=== PATIENT | female | born 1955 | race Caucasian/White ===

== ENCOUNTER 2016-12-26 08:01 | Outpatient (CLI) | payer OTHER ==
[~2016-12-26] VITALS: Ht 162.6 cm; Wt 86.2 kg
[~2016-12-26 08:01] MED LIST: ALBU8.5H2 IH; FERR-57 PO; FERR324T11 PO; TRIA1TAB2 PO
[2016-12-26] MEDS ORDERED: CHOL378P3 PO (08:56)
== END 2016-12-26 09:01 ==
LOC: PREOP 08:01
PROVIDERS: ATTEND Surgery
DX: Z01.818 Encounter for other preprocedural examination (principal); Z11.2 Encounter for screening for other bacterial diseases; L98.9 Disorder of the skin and subcutaneous tissue, unspecified

== ENCOUNTER 2016-12-31 06:45 | Day surgery (SDC) | payer OTHER ==
[~2016-12-31] VITALS: Ht 162.6 cm; Wt 86.2 kg
[~2016-12-31 06:45] MED LIST changes: +CHOL378P3 PO
[2016-12-31 07:15] VITALS: BP 140/78
[2016-12-31] MEDS ORDERED: ceFAZolin 2 GM/50 ML NS 50 ML ONE (07:19)
[2016-12-31] MEDS ORDERED: BUP/EPI 0.25% 1:200,000 (MARCAINE) 30 ML VIAL ONE (07:20)
[2016-12-31] MEDS ORDERED: ceFAZolin 2 GM/NS 50 ML IV ONE (07:45)
[2016-12-31] MEDS ORDERED: MIDAZOLAM 2 MG/2 ML (VERSED) VIAL ONE (07:49)
[2016-12-31] MEDS ORDERED: LACTATED RINGERS 1,000 ML IV ONE (07:49)
[2016-12-31] MEDS ORDERED: proPOfol 200 MG/20 ML (DIPRIVAN) VIAL IV ONE (07:49)
--- NOTE | 2016-12-31 07:49 | Progress Note-Pre Operative ---
Pre-Operative Progress Note H&P Reviewed The H&P was reviewed, patient examined and no changes noted. Date H&P Reviewed: December 31, 2016 Time H&P Reviewed: 07:49 Pre-Operative Diagnosis: Skin lesion-right neck REINIER CALDERA MD December 31, 2016 7:49 am
--- NOTE | 2016-12-31 09:14 | Progress Note-Post Operative ---
Post-Operative Progess Note Surgeon (s)/Public Health Informatician (s) Surgeon REINIER CALDERA MD Public Health Informatician: not applicable Pre-Operative Diagnosis Skin lesion-right neck Post-Operative Diagnosis inflamed seborrheic keratosis with atypia Procedure & Operative Findings Date of Procedure 12/31/16 Procedure Performed/Findings excision with frozen section Anesthesia Type sedation with local Estimated Blood Loss Estimated blood loss (mL): mminimal Specimens/Packing Specimens Removed skin lesion REINIER CALDERA MD December 31, 2016 9:14 am
[2016-12-31] MEDS ORDERED: TRAM50TA2 PO (09:15)
--- NOTE | 2016-12-31 09:16 | Discharge Inst-Simple/Standard ---
Discharge Inst-Standard Discharge Medications New, Converted or Re-Newed RX: RX on Chart Patient Instructions/Follow Up Plan of Care/Instructions/FU: Band-Aid off in 48 hours. Follow-up with my nurse in 10 days for suture removal Activity as Tolerated: Yes Discharge Diet: No Restrictions REINIER CALDERA MD December 31, 2016 9:16 am
[2016-12-31] MEDS ORDERED: morphine INJ 10 MG/ML 1ML (SYR OR VIAL) IVP PRN (09:30)
[2016-12-31] MEDS ORDERED: LACTATED RINGERS 1,000 ML IV PRN (09:44)
[2016-12-31 10:05] VITALS: BP 140/96
--- NOTE | 2016-12-31 10:19 | OPERATIVE REPORT ---
DATE OF SERVICE: 12/31/2016 PREOPERATIVE DIAGNOSIS: A 2 cm skin lesion, right side of neck. POSTOPERATIVE DIAGNOSIS: Suberic keratosis with atypia, right side of neck. OPERATION: Excision with frozen section. SURGEON: Reinier Caldera MD ANESTHESIA: Sedation with local. BLOOD LOSS: Minimal. FLUIDS: 300 mL of Crystalloid. TYPE OF WOUND: Type 1 (clean wound). INDICATION FOR THE PROCEDURE: This lady presented with a nonhealing, raised lesion over the right side of the neck concerning for a skin cancer. She was offered excision with frozen section to establish a definitive diagnosis. Informed consent was obtained after reviewing the procedure in detail. DESCRIPTION OF PROCEDURE: She was placed supine on the operating room table and our anesthesiologist administered sedation, monitoring her vital signs. A gram of Ancef was administered intravenously as prophylaxis against wound infection. The area was prepared and draped in the usual sterile manner. Local anesthesia was achieved using 0.25% Marcaine with epinephrine. An elliptical incision about 2.5 cm long x 1.5 cm wide was made and the lesion excised down to the subcutaneous tissue. It was oriented with silk sutures and sent for frozen section analysis. Dr. Verdugo, our pathologist, reported suberic keratosis with inflammatory changes and early atypia. Hemostasis was achieved using cautery and the incision closed using 6-0 nylon, in an interrupted fashion. She tolerated the procedure well and was taken back to the nursing area in a stable condition. Job ID: [id number] DocumentID: [id number] Dictated Date: 12/31/2016 09:14:07 Assisted Living Coordinator Date: 12/31/2016 10:19:13 Dictated By: REINIER CALDERA MD [facility]
[2016-12-31 10:35] VITALS: BP 136/67
== END 2016-12-31 10:45 | disposition home or self-care (01) ==
LOC: SDC 06:45
PROVIDERS: ATTEND Surgery
DX: L82.1 Other seborrheic keratosis (principal); I10 Essential (primary) hypertension; E66.9 Obesity, unspecified; Z68.32 Body mass index [BMI] 32.0-32.9, adult
CPT/HCPCS: 87081

== ENCOUNTER → 2018-10-01 | Outpatient (CLI) | payer OTHER ==
[~2018-10-01] MED LIST changes: +BARIUM SUSPENSION 2.1% (VANILLA SILQ) 450 ML PO ONE; +IOHEXOL 350 MG/ML 100 ML (OMNIPAQUE 350) VIAL IV ONE; +NS 100 ML (IVPB) BAG IV ONE; +RECEIVED CONTRAST 20 ML VIAL IV SCH; +TRAM50TA2 PO
[2018-10-01 08:47] LABS: CREATININE SERUM 0.95 MG/DL (0.60-1.30)
--- NOTE | 2018-10-01 11:17 | Diagnostic Imaging Report ---
PROCEDURE: CT chest, abdomen, and pelvis with and without contrast. TECHNIQUE: Precontrast images were obtained of the chest, abdomen, and pelvis. Multiple contiguous axial images were obtained through the chest, abdomen, and pelvis after administration of intravenous contrast. INDICATION: Endometrial carcinoma. FINDINGS: The previous CT abdomen/pelvis exam of 09/20/2014 noted cholelithiasis but failed to show any sign of an acute abnormality of the gallbladder. In the interval since the prior study, the patient has undergone a cholecystectomy. There are surgical clips now present in the gallbladder fossa. There is no mass or fluid evident in this area. It is my understanding that the patient was recently diagnosed with endometrial carcinoma. The uterus does not appear to be enlarged but the endometrium is abnormally thickened measuring 16 mm (normal endometrial thickness in a postmenopausal patient, 4 mm or less). There is no other abnormality of the uterus seen. There is no pelvic mass or adenopathy noted. The urinary bladder is only partially filled and consequently difficult to assess. The appendix is not seen to be abnormally thickened. In the interval since the prior exam, 2.3 cm defect has developed in the anterior abdominal wall approximately 3 cm cephalad to the umbilicus. A segment of small bowel has extended through this defect but there is no obstruction of the bowel. The liver is homogeneous and not enlarged. The spleen, pancreas, adrenals, kidneys, aorta, and inferior vena cava are unremarkable for an acute abnormality. As noted on the prior exam, much of the stomach lies above the diaphragm in a large hernia. The images through the thorax show that the heart size is within normal limits. The aorta is not abnormally dilated and there is no sign of dissection. There is no defect within the pulmonary arteries to indicate pulmonary embolus. The lungs are generally clear. There is compressive atelectasis in the left lung base due to the elevated left hemidiaphragm. There is no mediastinal or hilar adenopathy. The thyroid gland is generally unremarkable. There is no obvious breast mass. According to our records, the patient has not had a mammogram since 2014. If the patient has had a recent (one year) mammogram elsewhere, then no further imaging would be necessary. Otherwise, mammography would be recommended for further study. The bone windows show no evidence for fracture or for destructive lesion. There is a mild compression deformity of the superior endplate of T12. This finding is felt to be longstanding in nature. IMPRESSION: 1. The endometrial lining is abnormally thickened. This finding may well be related to the patient's diagnosis of endometrial carcinoma. 2. There is no evidence for metastatic disease and there is no sign of an acute abnormality of the chest, abdomen, or pelvis. 3. There has been an interval cholecystectomy. 4. A defect has developed in the anterior abdominal wall in the interval since the prior exam and the segment of bowel has extended through the defect. There is no evidence for obstruction of the bowel, however. 5. As noted on the prior exam, most of the stomach lies above the diaphragm. There is compressive atelectasis in the left lung base. 6. There is no obvious breast mass. Recommendations, as above. Dictated by: Dictated on workstation # [id number]
== END ==
LOC: RAD 08:10
PROVIDERS: ATTEND Obstetrics & Gynecology
DX: C54.1 Malignant neoplasm of endometrium (principal); J98.11 Atelectasis; R19.8 Other specified symptoms and signs involving the digestive system and abdomen; Z90.49 Acquired absence of other specified parts of digestive tract
CPT/HCPCS: 36415; 71270; 74178; 82565; 84520

== ENCOUNTER 2018-10-07 12:23 | Outpatient (CLI) | payer OTHER ==
[~2018-10-07] VITALS: Ht 162.6 cm; Wt 93.9 kg
[~2018-10-07 12:23] MED LIST changes: -BARIUM SUSPENSION 2.1% (VANILLA SILQ) 450 ML PO ONE; -IOHEXOL 350 MG/ML 100 ML (OMNIPAQUE 350) VIAL IV ONE; -NS 100 ML (IVPB) BAG IV ONE; -RECEIVED CONTRAST 20 ML VIAL IV SCH
[2018-10-07 12:35] VITALS: BP 145/84
[2018-10-07] MEDS ORDERED: MONT10TA21 PO (13:06)
[2018-10-07] MEDS ORDERED: TRIA1TAB2 PO (13:06)
[2018-10-07] MEDS ORDERED: RT-ALBUINH IH (13:06)
[2018-10-07] MEDS ORDERED: FERR325T18 PO (13:06)
[2018-10-07] MEDS ORDERED: MELA1TAB27 PO (13:06)
[2018-10-07 13:08] LABS: BASOPHILS % (AUTO) 1 % (0-10); EOSINOPHILS # (AUTO) 0.3 10^3/uL (0.0-0.3); EOSINOPHILS % (AUTO) 4 % (0-10); HEMATOCRIT 45 % (35-52); HEMOGLOBIN 14.7 G/DL (11.5-16.0); LYMPHOCYTES % (AUTO) 28 % (12-44); MEAN CORPUSCULAR HEMOGLOBIN 29 PG (25-34); MEAN CORPUSCULAR HGB CONC 33 G/DL (32-36); MEAN CORPUSCULAR VOLUME 90 FL (80-99); MEAN PLATELET VOLUME 11.4 FL (7.4-10.4); MONOCYTES # (AUTO) 0.7 X 10^3 (0.0-1.0); MONOCYTES % (AUTO) 9 % (0-12); NEUTROPHILS # (AUTO) 4.2 X 10^3 (1.8-7.8); NEUTROPHILS % (AUTO) 59 % (42-75); PLATELET COUNT 278 10^3/uL (130-400); RED CELL DISTRIBUTION WIDTH 13.3 % (10.0-14.5); WHITE BLOOD COUNT 7.2 10^3/uL (4.3-11.0)
[2018-10-07 13:23] LABS: BUN/CREATININE RATIO 20; CARBON DIOXIDE 28 MMOL/L (21-32); CHLORIDE 100 MMOL/L (98-107); CREATININE SERUM 0.87 MG/DL (0.60-1.30); POTASSIUM 4.1 MMOL/L (3.6-5.0); SODIUM 139 MMOL/L (135-145)
[2018-10-07 13:24] LABS: CALCIUM 9.1 MG/DL (8.5-10.1); GFR ESTIMATED > 60; GLUCOSE 105 MG/DL (70-105)
== END 2018-10-07 13:00 | disposition home or self-care (01) ==
LOC: PREOP 12:23
PROVIDERS: ATTEND Obstetrics & Gynecology
DX: Z01.812 Encounter for preprocedural laboratory examination (principal); Z11.2 Encounter for screening for other bacterial diseases; C54.1 Malignant neoplasm of endometrium; D64.9 Anemia, unspecified
CPT/HCPCS: 36415; 80048; 85025; 86850; 86900; 86901; 87081

== ENCOUNTER 2018-10-11 11:09 | Day surgery (SDC) | payer OTHER ==
[2018-10-11] VITALS (12 sets, daily range): BP systolic 124–153; BP diastolic 61–86
[~2018-10-11] VITALS: Ht 162.6 cm; Wt 93.9 kg
[~2018-10-11 11:09] MED LIST changes: +FERR325T18 PO; +MELA1TAB27 PO; +MONT10TA21 PO; +RT-ALBUINH IH
[2018-10-11] MEDS ORDERED: ceFAZolin INJECTION 1,000 MG in WATER (STERILE) FOR INJECTION 10 ML IV ONE (11:45)
[2018-10-11] MEDS: LACTATED RINGERS 1,000 ML IV PRN ×2 (11:55→14:28)
[2018-10-11] MEDS ORDERED: ONDANSETRON 4 MG/2 ML (SDV) Z0FRAN ONE ×2 (11:55→14:54)
[2018-10-11] MEDS ORDERED: LIDOCAINE PF 2% 5 ML (XYLOCAINE) VIAL ONE (11:55)
[2018-10-11] MEDS ORDERED: ROCURONIUM 10 MG/ML 5 ML SYRINGE IV ONE (11:55)
[2018-10-11] MEDS ORDERED: proPOfol 200 MG/20 ML (DIPRIVAN) VIAL IV ONE (11:55)
[2018-10-11] MEDS ORDERED: MIDAZOLAM 2 MG/2 ML (VERSED) VIAL ONE (11:56)
[2018-10-11] MEDS ORDERED: fentaNYL INJECTION 100 MCG/2 ML AMP ONE (11:56)
[2018-10-11] MEDS ORDERED: BUP/EPI 0.5% 1:200,000 (SENSORCAINE) 30 ML VIAL ONE (12:24)
--- NOTE | 2018-10-11 12:33 | Progress Note-Pre Operative ---
Pre-Operative Progress Note H&P Reviewed The H&P was reviewed, patient examined and no changes noted. Date Seen by Provider: Oct 11, 2018 Time Seen by Provider: 12:32 Date H&P Reviewed: Oct 11, 2018 Time H&P Reviewed: 12:32 Pre-Operative Diagnosis: Endometrial cancer NEW PEREZ MD Oct 11, 2018 12:33
--- NOTE | 2018-10-11 12:34 | Progress Note-Post Operative ---
Post-Operative Progess Note Surgeon (s)/Rough And Trueing Machine Operator (s) Surgeon NEW PEREZ MD Rough And Trueing Machine Operator: Smiley Villafana Pre-Operative Diagnosis Endometrial cancer Post-Operative Diagnosis Same with pathology pending Procedure & Operative Findings Date of Procedure 10/11/18 Procedure Performed/Findings Total laparoscopic hysterectomy with bilateral salpingo-oophorectomy and obtain pelvic washings Anesthesia Type GETA Estimated Blood Loss Estimated blood loss (mL): Minimal Specimens/Packing Specimens Removed Uterus fallopian tubes and ovaries and pelvic washings Packing: None NEW PEREZ MD Oct 11, 2018 12:34
[2018-10-11] MEDS ORDERED: DOCU-143 PO (12:38)
[2018-10-11] MEDS ORDERED: IBUP-1780 PO (12:38)
[2018-10-11] MEDS ORDERED: OXYC1TAB87 PO (12:38)
--- NOTE | 2018-10-11 12:40 | Discharge Instructions ---
Discharge Instructions Discharge Medications New, Converted or Re-Newed RX: RX on Chart Patient Instructions Patient Instructions: As directed Return to The Hospital For: As directed Activity & Diet Discharge Diet: No Restrictions Activity as Tolerated: No Orders-Post D/C & Referrals Follow Up Appt: Return to clinic with me on Thursday, October 13, 2018 at 930 a.m. for staple removal Call to make follow up appt. for patient in 4 weeks. Activity: Rest for 24 hours, than as tolerated. Wound Care: May remove Band-Aid tomorrow. Replace as desired. Keep incisions clean and dry. Wash daily with soap and water. Please call in RX to patient pharmacy. Diet: As tolerated-Clear Liquids only if nauseated. shower or tub bathe as desired. No driving for 24 hours, no alcoholic beverages for 24 hours, and nothing per vagina (no tampons, douching, or intercourse) for 8 weeks. Patient to return to the clinic as soon as possible for: Temperature greater than 101F, Severe Pain, Foul discharge from incision or vagina, Excessive Bleeding (more than a period). NEW PEREZ MD Oct 11, 2018 12:40
[2018-10-11] MEDS ORDERED: PROMETHAZINE INJ 25 MG/ML (PHENERGAN) AMP IM PRN (12:45)
[2018-10-11] MEDS ORDERED: oxyCODONE/APAP 5/325MG (PERCOCET 5) TABLET PO PRN (12:45)
[2018-10-11] MEDS ORDERED: PATIENT MAY USE OWN MEDS, ALL MC SCH (12:45)
[2018-10-11] MEDS ORDERED: MEPERIDINE (DEMEROL) INJ 100 MG/ML IM PRN (12:45)
[2018-10-11] MEDS ORDERED: BENZOCAINE/MENTHOL (DERMOPLAST) 56 ML CAN TP PRN (12:45)
[2018-10-11] MEDS ORDERED: NEOSTIGMINE 1 MG/ML 5 ML SYRINGE ONE (14:28)
[2018-10-11] MEDS ORDERED: GLYCOPYRROLATE 0.2 MG/ML (ROBINUL) 2 ML VIAL ONE (14:28)
[2018-10-11] MEDS ORDERED: SEVOFLURANE (ULTANE) 15 ML INHAL SOLN ONE ×5 (14:28)
[2018-10-11] MEDS ORDERED: KETOROLAC 30 MG/ML VIAL ONE (14:54)
[2018-10-11] MEDS ORDERED: WATER (STERILE) FOR INJECTION 0 ML ONE (14:55)
[2018-10-11] MEDS ORDERED: ESTROGENS CONJ IV 25 MG/5 ML (PREMARIN) VIAL ONE (14:55)
[2018-10-11] MEDS: KETOROLAC 30 MG/ML VIAL IVP SCH ×2 (14:58→20:47)
[2018-10-11] MEDS ORDERED: PROMETHAZINE INJ 25 MG/ML (PHENERGAN) AMP IVP ONE (15:00)
[2018-10-11] MEDS ORDERED: morphine INJ 10 MG/ML 1ML (SYR OR VIAL) IVP ONE (15:00)
[2018-10-11] MEDS ORDERED: ONDANSETRON 4 MG/2 ML (SDV) Z0FRAN IVP PRN (15:00)
[2018-10-11] MEDS ORDERED: HYDROmorphone 2 MG/ML VIAL (DILAUDID) IV ONE (15:00)
[2018-10-11] MEDS ORDERED: KETOROLAC 30 MG/ML VIAL IVP ONE (15:00)
[2018-10-11] MEDS ORDERED: RT-ALBUTEROL SULF 2.5 MG/3 ML PRE-MIX VIAL INH ONE (15:00)
[2018-10-11] MEDS ORDERED: MEPERIDINE (DEMEROL) INJ 50 MG/ML IVP ONE (15:00)
[2018-10-11] MEDS ORDERED: morphine INJ 10 MG/ML 1ML (SYR OR VIAL) ONE (15:08)
--- NOTE | 2018-10-11 15:50 | NUR ---
CHARU GILBERT admitted to room 3306-1 VIA BED FROM PACU ACC BY MARIAJOSE RATLIFF FIXED INCOME PORTFOLIO MANAGER AFTER A ROBOTIC ASSISTED TOTAL LAPAROSCOPIC HYSTERECTOMY WITH BILATERAL SALPINGO-OOPHORECTOMY AND PELVIC WASHINGS TODAY BY DR. PEREZ.PT VERY DROWSY BUT AROUSES WHEN SPOKEN TO. SPOUSE introduced to surroundings, call light, bed controls, phone, TV, temperature control, lights, meal times, smoking policy, visitor policy, side rail policy, bathrooms and showers. Patient Rights given to patient in the handbook.
--- NOTE | 2018-10-11 16:07 | NUR ---
RT NOTIFIED OF NEED TO COME SET UP END TIDAL CO2 AND CONTINUOUS SPO2 MONITORING. THIS RN HAS CONTINUOUS CPO2 MONITORING AND FREQUENT VS AT THIS TIME.
--- NOTE | 2018-10-11 16:22 | NUR ---
RT NOTIFIED OF PT HAVING DROPS IN RESP. AND SPO2. PLAN TO COME SOON PER YOVANI RT.
[2018-10-11] MEDS ORDERED: D5 LR IV SOLUTION 1,000 ML IV ONE (16:29)
--- NOTE | 2018-10-11 16:35 | NUR ---
YOVANI RT TO ROOM AND SET UP CONTINUOUS END TIDAL CO2 MONITORING AND CONT. SPO2 MONITORING. PT. AROUSES WHEN ASKED TO BREATH. BUT THEN DRIFTS OFF AGAIN. THIS RN REMAINING AT THE BEDSIDE. RT DECREASED O2 TO 3L/M/NC. SEE VS. SPOUSE AT BEDSIDE. EVERY COUPLE OF MINUTES PT REMINDED TO TAKE DEEP BREATHS AND RECOVERS QUICKLY. RESP BETWEEN 5-10 /MINUTE.
[2018-10-11] MEDS: D5 LR IV SOLUTION 1,000 ML IV SCH ×2 (16:48→23:39)
--- NOTE | 2018-10-11 17:00 | NUR ---
PT REQUESTED ICE CHIPS. TOOK ONE CHIP AND CAUSED PT TO GAG AND HEAVE PRODUCING APPROX. 1 ML OF SALIVA.
--- NOTE | 2018-10-11 17:30 | NUR ---
SPO2 IS MAINTAINED >90% LONG PT DOESN'T HAVE APNEA THEN DROPS TO LOW 79%-88%. RN REMAINS AT BEDSIDE.
--- NOTE | 2018-10-11 18:10 | NUR ---
PT NAUSEATED AGAIN. SPIT UP APPROX. 5 MLS OF BILE COLORED EMESIS.
[2018-10-11] MEDS ORDERED: ONDANSETRON 4 MG/2 ML (SDV) Z0FRAN IVP ONE (18:15)
--- NOTE | 2018-10-11 18:15 | NUR ---
DR. PEREZ NOTIFIED OF PT'S C/O NAUSEA. ORDER RECEIVED. INFORMED OF DROWSY STATE OF PT REQUIRING RN AT BEDSIDE AND CONTINUOUS END TIDAL CO2 MONITORING AND SPO2 MONITORING.
--- NOTE | 2018-10-11 18:32 | NUR ---
ZOFRAN [address] PEREZ ORDER. PT MORE AWAKE AT THIS TIME BUT STILL FALLS ASLEEP FREQUENTLY. FRIEND AT BEDSIDE AND TALKING TO PT. WHICH APPEARS TO BE HELPING. SPOUSE LEFT TO EAT. SEE VS FLOW SHEET. CONTINUING TO SET ALARM OFF PRIMARILY FOR DECREASED RESP. WHEN FALLING ASLEEP. MAINTAINING SPO2 MUCH BETTER.
--- NOTE | 2018-10-11 18:42 | NUR ---
HOUSTON BARKER NOTIFIED OF PT'S C/O NAUSEA. REQUESTED SCOPOLAMINE PATCH. ORDER RECEIVED. INFORMED OF EXTREME DROWSINESS AND APNEA AT TIMES WHEN FALLS BACK TO SLEEP.
[2018-10-11] MEDS ORDERED: SCOPOLAMINE 1.5 MG (TRANSDERM-SCOP) PATCH TD ONE (18:45)
--- NOTE | 2018-10-11 19:00 | NUR ---
STATES FEELS A LITTLE LESS NAUSEATED. SINCE PA. WAITNG FOR TRANS DERM SCOP PATCH TO COME TO THE FLOOR. REPORT TO Arturo EASTON RN.
--- NOTE | 2018-10-12 00:52 | OPERATIVE REPORT ---
DATE OF SERVICE: 10/11/2018 PREOPERATIVE DIAGNOSIS: Endometrial cancer. POSTOPERATIVE DIAGNOSIS: Endometrial cancer with pathology pending. OPERATIVE PROCEDURE: Total laparoscopic hysterectomy with bilateral salpingo-oophorectomy and adhesiolysis, pelvic washings. OPERATIVE DESCRIPTION: With the patient in supine position under satisfactory general anesthesia, she was repositioned in the dorsal lithotomy position in the [facility] and prepped and draped in usual fashion for abdominal and vaginal surgery using robotic assistance. A weighted speculum placed in posterior fornix of vagina, cervix exposed and grasped anteriorly with single tooth tenaculum. Uterus was sounded to 9.5 cm with uterine sound. Cervix was then serially dilated with Robles dilators to accommodate a Mony II manipulator, which was placed using a 6 mm x 8 cm uterine probe and a 25 mm colpotomy ring. Sutures of #1 Vicryl placed at 3 and 9 o'clock position of the cervix to affix the uterus to the manipulator. Mcallister catheter placed in the urinary bladder and left to dependent drainage. The patient brought in low dorsal lithotomy position. A 12 mm incision was made 4 cm superior to the umbilicus and a stab wound at Torres's point. An attempt was initially made in the supraumbilical incision site to place the Veress needle, but that was unsuccessful. The stab wound was made at Torres's point. Veress needle was placed easily and the abdomen insufflated with 2.4 liters of carbon dioxide. The 12 mm port was then placed through the midline incision. An 8 mm ports were placed through incisions of those sizes 9 cm lateral to the umbilicus just above the level to the umbilicus on each side. All incision sites except a stab wound was infiltrated with 0.25% Marcaine with epinephrine prior to incision. Pelvic washings was obtained before placed the patient in Trendelenburg. The pelvis was irrigated and that irrigant was agitated the bed and then aspirated out and sent to pathology as pelvic washing for permanent section. The patient was now placed in Trendelenburg allowing the bowel was filled partially above the pelvis. There were some adhesions of the sigmoid to both fallopian tubes into the right ovary. These adhesions were taken free and eventually allowing the bowel to spill better out of the pelvis. There were some fairly dense adhesions of the sigmoid to the left IP ligament. These were taken down with very careful and meticulous dissection. Neither ureter could be seen to peristalse through the peritoneum. A decision made to dissect out both ureters. Using a bipolar fenestrated grasper on the left and a monopolar shear, the round ligament was opened on the right and then the retroperitoneal space was dissected down into the pelvis to eventually expose the ureter deep in the pelvis on the right. It was seemed to peristalse and then the same procedure was performed on the left. The left ureter was not quite as deep as a one on the right, but both ureters were easily identified in the retroperitoneal spaces. A bipolar fenestrated grasper stayed in place and then a vessel sealer was used on the right to first clamp, cauterize and divide the IP ligament on the right and then continued across the mesovarium, across the broad ligament and eventually down on the cardinal ligament. Same procedure performed on the left, allowing for removal of both tubes and ovaries eventually with the uterus. The anterior lower uterine segment peritoneum was exposed and then replaced the monopolar shear back into the right port. The anterior lower uterine segment peritoneum was divided. The bladder was carefully dissected down off the lower uterine segment and colpotomy incision was started at the 12 o'clock position on the cervix and continued circumferentially around the cervix until the entire colpotomy ring was exposed. The uterus with tubes and ovaries still attached was extracted through the vagina and sent to pathology labeled appropriately for permanent section. The pelvis was irrigated and then sutures of a V-Loc barbed suture was started at first at each angle using two separate sutures. The suture was placed at the angle of the vagina taking care to ensure inclusion of the terminus of the uterine vessels on each side to ensure hemostasis. The vaginal cuff was then closed to the midline with the suture and then the peritoneum was repaired, it lies down onto the cuff with those sutures as well. The needles were removed. Both ureters were reexamined by opening the retroperitoneal space on each side and confirming peristalsis and no dilation or distortion of the ureters. With the procedure complete, no bleeding and no remaining abnormal pathology, the procedure was terminated. The patient was brought out of Trendelenburg after first removing the operative instruments and evacuated the abdomen of the insufflating gas. The ports were removed under direct vision. No bleeding was noted. The skin incisions were stapled after closing the fascia at the supraumbilical incision first with a [id number] suture of 2-0 Vicryl. Speculum was replaced in the vagina. The vaginal cuff was examined and was completely hemostatic and completely reapproximated. With sponge, needle counts correct, hemostasis assured and the patient draining clear yellow urine. The procedure was terminated. The operative instrument counts were correct as needle counts. Estimated blood loss was minimal. The patient was uneventfully awakened from her general anesthesia and transferred to the recovery room in stable condition. Job ID: [id number] DocumentID: [id number] Dictated Date: 10/11/2018 14:33:28 Limousine Driver Date: 10/12/2018 00:51:15 Dictated By: NEW PEREZ MD
[2018-10-12 01:00] VITALS: BP 136/68
[2018-10-12] MEDS: KETOROLAC 30 MG/ML VIAL IVP SCH (03:26)
[2018-10-12 06:50] VITALS: BP 152/67
--- NOTE | 2018-10-12 06:53 | Anesthesia-General Post-Op ---
General Patient Condition Mental Status/LOC: Same as Preop Cardiovascular: Satisfactory Nausea/Vomiting: Absent Respiratory: Satisfactory Pain: Controlled Complications: Absent Post Op Complications Complications None Follow Up Care/Instructions Patient Instructions None needed. Anesthesia/Patient Condition Patient Condition Patient is doing well, stable vital signs, no apparent adverse anesthesia problems this am. Patient experienced PONV in recovery and received zofran, phenergan, and finally , scopolamine patch when she was still experiencing nausea and vomiting on 3rd floor. This am, the patient reports her NV has resolved and she is pleased. No complications reported per nursing. SIRIA HADDAD CRNA Oct 12, 2018 06:53
--- NOTE | 2018-10-12 07:38 | Progress Note-Standard ---
Standard Progress Note Progress Notes/Assess & Plan Date Seen by a Provider: Oct 12, 2018 Time Seen by a Provider: 07:37 Progress/Assessment & Plan This patient without complaint. She is now ambulating, tolerating oral intake well has good pain control. Patient has not voided yet. Patient denies headache, denies shortness of breath, denies nausea vomiting, denies chest pain. Vital Signs Date Time Temp Pulse Resp B/P (MAP) Pulse Ox O2 Delivery O2 Flow Rate FiO2 10/12/18 06:50 98.0 65 20 152/67 (95) 98 10/12/18 06:23 95 Nasal Cannula 3.00 10/12/18 02:44 96 Nasal Cannula 3.00 10/12/18 01:00 97.1 65 12 136/68 (90) 98 10/11/18 23:35 12 131/68 (89) 96 10/11/18 21:52 96 Nasal Cannula 3.00 10/11/18 20:40 97.4 63 12 153/66 (95) 97 10/11/18 19:32 97 Nasal Cannula 3.00 10/11/18 19:20 52 9 152/70 (97) 98 10/11/18 19:00 53 13 139/68 (91) 98 Nasal Cannula 3.00 10/11/18 18:30 55 12 124/67 (86) 98 Nasal Cannula 3.00 10/11/18 18:00 61 11 138/68 (91) 97 Nasal Cannula 3.00 10/11/18 17:30 59 8 140/61 (87) 93 Nasal Cannula 3.00 10/11/18 17:00 70 13 149/67 (94) 94 Nasal Cannula 3.00 10/11/18 16:35 94 Nasal Cannula 3.00 10/11/18 16:30 56 8 140/79 (99) 92 Nasal Cannula 4.00 10/11/18 16:18 56 10 152/69 (96) 97 Nasal Cannula 4.00 10/11/18 16:15 97 Nasal Cannula 4.00 10/11/18 16:00 98.3 62 10 140/74 (96) 96 Nasal Cannula 4.00 10/11/18 11:09 97.4 82 18 147/86 (106) 93 Room Air I & O 10/12/18 07:00 Intake Total 2360 ml Output Total 546 ml Balance 1814 ml Vital signs are stable. Patient is afebrile. The abdomen is benign. Extremities show clubbing or cyanosis. There is no Homans sign. Assessment and plan postoperative day number 1 doing well. Plan is for routine convalescence care with discharge home today and follow-up in clinic Final Diagnosis Endometrial cancer NEW PEREZ MD Oct 12, 2018 07:38
--- NOTE | 2018-10-12 07:45 | NUR ---
DR. PEREZ HERE TO SEE PT. D/C'ED CONTINUOUS SPO2 AND END TIDAL CO2. DOING WELL. A/O.
[2018-10-12 08:00] VITALS: BP 137/67
--- NOTE | 2018-10-12 08:00 | NUR ---
VSS. OUT TO AMBULATE IN THE PATE WITH A FRIEND.
[2018-10-12] MEDS ORDERED: IBUPROFEN 800 MG (MOTRIN) TAB PO ONE (08:52)
[2018-10-12] MEDS ORDERED: DOCUSATE SODIUM 100 MG (COLACE) CAP PO SCH (09:00)
--- NOTE | 2018-10-12 10:00 | NUR ---
VOIDING SMALL AMOUNTS OF URINE. DRINKING WELL. S.O. ENROUTE TO TAKE PT HOME. DENIES ANY PAIN.
--- NOTE | 2018-10-12 10:15 | NUR ---
DISCHARGE INSTRUCTIONS REVIEWED WITH COPY TO PT. STATES UNDERSTANDING OF ALL INSTRUCTIONS AND NEED TO F/U SCHEDULED AND NEEDED.
--- NOTE | 2018-10-12 11:30 | NUR ---
DISMISSED FROM [facility] VIA W/C IN STABLE CONDITION TO FAMILY CAR WHERE S.O. WAS WAITING ACC BY LESLI GAY.
[2018-10-12 11:35] VITALS: BP 137/67
[2018-10-12] MEDS ORDERED: IBUPROFEN 800 MG (MOTRIN) TAB PO SCH (18:00)
== END 2018-10-12 11:35 | disposition home or self-care (01) ==
LOC: SDC 11:09 → WS 15:50 → SDC 10-12 11:35
PROVIDERS: ATTEND Obstetrics & Gynecology
DX: C54.1 Malignant neoplasm of endometrium (principal); I10 Essential (primary) hypertension; E66.9 Obesity, unspecified; Z68.35 Body mass index [BMI] 35.0-35.9, adult; Z79.899 Other long term (current) drug therapy
CPT/HCPCS: 36415; 86850; 86900; 86901; 94664; 94760

== ENCOUNTER → 2018-10-25 | Outpatient (CLI) | payer OTHER ==
[~2018-10-25] MED LIST changes: +DOCU-143 PO; +IBUP-1780 PO; +OXYC1TAB87 PO
--- NOTE | 2018-10-25 18:52 | Diagnostic Imaging Report ---
INDICATION: Routine screening. COMPARISON: Comparison is made with prior mammograms from 07/31/2015 and 01/03/2014. TECHNIQUE: 2D and 3D bilateral screening mammography was performed with computer-aided detection (CAD) system. FINDINGS: Both breasts are primarily involutional. The parenchymal pattern appears stable. No discrete mass or malignant appearing microcalcifications are seen. The axillae are unremarkable. IMPRESSION: No mammographic features suspicious for malignancy are identified. ACR BI-RADS Category 1: Negative. Result letter will be mailed to the patient. Note: At least 10% of breast cancer is not imaged by mammography. Dictated by: Dictated on workstation # [id number]
== END ==
LOC: RAD 09:31
PROVIDERS: ATTEND Nurse Practitioner Family
DX: Z12.31 Encounter for screening mammogram for malignant neoplasm of breast (principal)
CPT/HCPCS: 77067

== ENCOUNTER 2019-05-03 14:04 | Outpatient (RCR) | payer OTHER | END 2019-08-01 | disposition home or self-care (01) | LOC: ONC 14:04 | PROVIDERS: ATTEND Internal Medicine Hematology & Oncology | DX: C54.1 Malignant neoplasm of endometrium (principal); I10 Essential (primary) hypertension; D50.9 Iron deficiency anemia, unspecified; E66.9 Obesity, unspecified; Z68.36 Body mass index [BMI] 36.0-36.9, adult; Z90.710 Acquired absence of both cervix and uterus; Z79.899 Other long term (current) drug therapy | CPT/HCPCS: 99213 ==

== ENCOUNTER → 2019-08-24 | Outpatient (CLI) | payer OTHER ==
[~2019-08-24] MED LIST changes: -TRAM50TA2 PO; +TRM50T PO
== END ==
LOC: EDSTATUS 08-02 09:22 → ONC 09:23
PROVIDERS: ATTEND Internal Medicine Hematology & Oncology
DX: C54.1 Malignant neoplasm of endometrium (principal); I10 Essential (primary) hypertension; D50.9 Iron deficiency anemia, unspecified; E66.9 Obesity, unspecified; Z68.36 Body mass index [BMI] 36.0-36.9, adult; Z90.710 Acquired absence of both cervix and uterus; Z79.899 Other long term (current) drug therapy
CPT/HCPCS: 99213

== ENCOUNTER → 2019-12-05 | Outpatient (CLI) | payer OTHER | LOC: ONC 15:04 | PROVIDERS: ATTEND Internal Medicine Hematology & Oncology | DX: C54.1 Malignant neoplasm of endometrium (principal); I10 Essential (primary) hypertension; D50.9 Iron deficiency anemia, unspecified; E66.9 Obesity, unspecified; Z68.36 Body mass index [BMI] 36.0-36.9, adult; Z90.710 Acquired absence of both cervix and uterus; Z79.899 Other long term (current) drug therapy | CPT/HCPCS: 99213 ==

== ENCOUNTER → 2020-06-01 | Outpatient (CLI) | payer OTHER | LOC: ONC 13:50 | PROVIDERS: ATTEND Internal Medicine Hematology & Oncology | DX: C54.1 Malignant neoplasm of endometrium (principal); I10 Essential (primary) hypertension; D50.9 Iron deficiency anemia, unspecified; E66.9 Obesity, unspecified; Z68.36 Body mass index [BMI] 36.0-36.9, adult; Z90.710 Acquired absence of both cervix and uterus; Z79.899 Other long term (current) drug therapy | CPT/HCPCS: 99213 ==

== ENCOUNTER → 2020-10-04 | Outpatient (CLI) | payer OTHER | LOC: ONC 14:43 | PROVIDERS: ATTEND Internal Medicine Hematology & Oncology | DX: C54.1 Malignant neoplasm of endometrium (principal); D50.0 Iron deficiency anemia secondary to blood loss (chronic); I10 Essential (primary) hypertension; Z90.710 Acquired absence of both cervix and uterus | CPT/HCPCS: 99213 ==

== ENCOUNTER 2020-11-04 10:12 | Emergency (ER) | payer OTHER ==
[~2020-11-04] VITALS: Ht 157 cm; Wt 90.7 kg
[2020-11-04] MEDS ORDERED: LIDOCAINE/EPI 2% 1:100,00 (XYLOCAINE) 20 ML VIAL INJ ONE (11:00)
--- NOTE | 2020-11-04 11:14 | ED Lower Extremity ---
General Chief Complaint: Lower Extremity Stated Complaint: L LEG BLEEDING Nursing Triage Note: ARRIVED VIA WC FROM HOME. STATES SHE WAS TAKING OFF HER SUPPORT HOSE THIS AM AND HER LEFT LEG STARTED SHOOTING OUT BLOOD. LOWER LEG CAME WRAPPED IN A DRESSING. UPSET WITH THE WAIT IT TOOK TO COME BACK TO THE ER. EXPLAINED THAT THE ER WAS BUSY WITH [facility] PT'S ET STATES NEXT TIME I WILL CALL A AMBULANCE TO GET HER SEEN QUICKER. LEFT FOOT WARM CMS CHECK WNL. Nursing Sepsis Screen: No Definite Risk Source: patient, other Exam Limitations: no limitations History of Present Illness Date Seen by Provider: Nov 04, 2020 Time Seen by Provider: 10:34 Initial Comments Patient presents to the ER with her significant other by private conveyance from home with chief complaint she was taking her ARIELLA hose off and must of scratched her leg and caused a spurting bleed on the lateral left lower leg. She has a history of varicosities. She has a wound that has been slow to heal on her left lower leg as well and follows with Dr. Link. She is not on antibiotics or blood thinners. Allergies and Home Medications Allergies Coded Allergies: Vinod Known Allergies (Verified Allergy, Unknown, 07/29/06) Home Medications Albuterol Sulfate 1 Puff Puff, 2 PUFF IH Q4H PRN for WHEEZING, (Reported) 1 PUFF = 90 MCG Cephalexin 500 Mg Tablet, 500 MG PO QID Prescribed by: JOHNNIE GALICIA on 11/04/20 1135 Cholestyramine (with Sugar) 378 Gm Powder, 1 GM PO DAILY, (Reported) Docusate Sodium 100 Mg Capsule, 100 MG PO BID Prescribed by: NEW MACHUCA on 10/11/18 1238 Ferrous Sulfate 325 Mg Tablet, 325 MG PO DAILY, (Reported) Hydrocodone/Acetaminophen 1 Each Tablet, 0.5-1 TAB PO Q4H PRN for PAIN-MODERATE (5-7) Prescribed by: JOHNNIE GALICIA on 11/04/20 1135 Ibuprofen 800 Mg Tablet, 800 MG PO Q6H PRN for PAIN Prescribed by: NEW MACHUCA on 10/11/18 1238 Melatonin/Pyridoxine HCl (B6) 1 Each Tablet, 3 MG PO HS, (Reported) Montelukast Sodium 10 Mg Tablet, 10 MG PO DAILY, (Reported) Oxycodone HCl/Acetaminophen 1 Each Tablet, 1 TAB PO Q4H Prescribed by: NEW MACHUCA on 10/11/18 1238 Triamterene/Hydrochlorothiazid 1 Each Tablet, 1 EACH PO DAILY, (Reported) Patient Home Medication List Home Medication List Reviewed: Yes Review of Systems Constitutional: No chills, No diaphoresis EENTM: No ear discharge, No ear pain Respiratory: No cough, No short of breath Cardiovascular: No chest pain, No palpitations Gastrointestinal: No abdominal pain, No constipation, No diarrhea Genitourinary: No discharge, No dysuria Musculoskeletal: No back pain, No joint pain Skin: see HPI All Other Systems Reviewed Negative Unless Noted: Yes Past Qxhifne-Dkfxkp-Scllsv Hx Patient Social History Alcohol Use: Denies Use Smoking Status: Never a Smoker Recent Infectious Disease Expo: No Recent Hopitalizations: No Immunizations Up To Date Date of Influenza Vaccine: May 03, 2018 Seasonal Allergies Seasonal Allergies: No Past Medical History Surgeries: Yes (skin lesion removed, ) Gallbladder Respiratory: No (allergy induced asthma) Cardiac: Yes Hypertension Neurological: No Reproductive Disorders: No Genitourinary: No Gastrointestinal: Yes Chronic Diarrhea Musculoskeletal: No Endocrine: No HEENT: No Cancer: No (endometrial cancer) Psychosocial: No Integumentary: No Blood Disorders: Yes (hx of Anemia) Adverse Reaction/Blood Tranf: No Family Medical History Alcoholism G8 SISTER Drug abuse G8 SISTER FH: breast cancer 19 MOTHER FH: lung cancer 19 FATHER Pancreatitis G8 SISTER Psoriasis G8 SISTER No Family History of: Alzheimer's disease Completed stroke Dementia Diabetes mellitus No Pertinent Family Hx Physical Exam Vital Signs Vital Signs - First Documented 11/04/20 10:30 Temp 36.4 Pulse 107 Resp 16 B/P (MAP) 190/94 (126) Pulse Ox 95 O2 Delivery Room Air Capillary Refill : Less Than 3 Seconds Height, Weight, BMI Height: 5'4.00" Weight: 207lbs. 0.0oz. 93.584969xz; 36.00 BMI Method: General Appearance: WD/WN, no apparent distress HEENT: pharynx normal Neck: full range of motion, normal inspection Cardiovascular: normal peripheral pulses, regular rate, rhythm Respiratory: no respiratory distress, no accessory muscle use Gastrointestinal: non tender, soft Legs: bilateral leg other (Bilateral varicosities with a steady bleeding varicose vein lateral left lower extremity above the ankle. Chronic nonhealing ulcer medial midshaft left lower leg.) Procedures/Interventions Wound Location: Lower Extremities Other Wound Location Lateral left lower extremity Just above the ankle Wound Length (cm): 0.5 Wound's Depth, Shape: superficial Wound Explored: no foreign body removed Betadine Prep?: Yes (Chlorhexidine and sterile saline) Anesthesia: Lidocaine w/ Epi (2%) Volume Anesthetic (ccs): 2 Wound Debrided: minimal Suture: Prolene Suture Size: 4-0 Number of Sutures: 1 Sterile Dressing Applied?: Yes Progress Wound was thoroughly cleaned with chlorhexidine and sterile saline and after infiltrating with lidocaine a [id number] pursestring single suture using 4- 0 Prolene was placed which caused hemostasis. Patient tolerated procedure well. Triple antibiotic ointment and gauze secured with Coban. Progress/Results/Core Measures Results/Orders Lab Results Laboratory Tests Test 11/04/20 11:28 Range/Units White Blood Count 9.0 4.3-11.0 10^3/uL Red Blood Count 4.29 3.80-5.11 10^6/uL Hemoglobin 12.2 11.5-16.0 g/dL Hematocrit 39 35-52 % Mean Corpuscular Volume 92 80-99 fL Mean Corpuscular Hemoglobin 28 25-34 pg Mean Corpuscular Hemoglobin Concent 31 L 32-36 g/dL Red Cell Distribution Width 13.2 10.0-14.5 % Platelet Count 268 130-400 10^3/uL Mean Platelet Volume 11.2 9.0-12.2 fL Immature Granulocyte % (Auto) 0 % Neutrophils (%) (Auto) 68 42-75 % Lymphocytes (%) (Auto) 20 12-44 % Monocytes (%) (Auto) 7 0-12 % Eosinophils (%) (Auto) 3 0-10 % Basophils (%) (Auto) 1 0-10 % Neutrophils # (Auto) 6.1 1.8-7.8 10^3/uL Lymphocytes # (Auto) 1.8 1.0-4.0 10^3/uL Monocytes # (Auto) 0.7 0.0-1.0 10^3/uL Eosinophils # (Auto) 0.3 0.0-0.3 10^3/uL Basophils # (Auto) 0.1 0.0-0.1 10^3/uL Immature Granulocyte # (Auto) 0.0 0.0-0.1 10^3/uL My Orders Orders - JOHNNIE GALICIA Cbc With Automated Diff (11/04/20 10:52) Lidocaine/Epi 2% 1:100,000 (Xylocaine/Ep (11/04/20 11:00) Medications Given in ED Current Medications Medications Dose Ordered Sig/Adam Route Start Time Stop Time Status Last Admin Dose Admin Lidocaine/ Epinephrine 20 ml ONCE ONCE INJ 11/04/20 11:00 11/04/20 11:01 DC 11/04/20 11:24 20 ML Vital Signs/I&O 11/04/20 11/04/20 10:30 11:42 Temp 36.4 Pulse 107 77 Resp 16 16 B/P (MAP) 190/94 (126) 139/54 Pulse Ox 95 92 O2 Delivery Room Air Room Air Blood Pressure Mean: 126 Progress Progress Note : Time: 11:24 Progress Note She has an unrelated venous stasis ulcer on her left lower extremity as well as a 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 It is nonpulsatile and dark. She is done a couple courses of antibiotics for a chronic nonhealing wound on her left lower extremity and would like to go back to either primary care or wound care to have it addressed. Departure Impression Primary Impression: Bleeding from varicose veins of left lower extremity Additional Impression: Venous stasis ulcer limited to breakdown of skin with varicose veins Qualified Codes: I83.022 - Varicose veins of left lower extremity with ulcer of calf; L97.221 - Non-pressure chronic ulcer of left calf limited to breakdown of skin Disposition: 01 HOME, SELF-CARE Condition: Stable Departure-Patient Inst. Decision time for Depature: 11:29 Referrals: SAURAV LINK MD (PCP/Family) Primary Care Physician VIJAY GUSTAFSON MD Patient Instructions: Varicose Veins and Other Vein Disease in the Legs, Wound Care (DC) Add. Discharge Instructions: Keep the wound clean with regular soap and water and you may apply a small dollop of Vaseline over the suture before putting gauze over it. Change the gauze dressing at least daily or more often if it becomes soiled. Some oozing is expected. Keep the leg elevated above the level of your heart when possible. Return to the ER if you are unable to get it to stop bleeding despite direct pressure for 20 minutes. Follow-up with Dr. Link as necessary or you may follow-up with Dr. Gustafson, wound care for your chronic stasis ulcer of the same leg. Keflex 1 capsule 4 times a day for the next 7 days to prevent wound infection. Hydrocodone 1/2 tablet to 1 tablet every 4 hours as necessary for pain. Tylenol 650 mg every 6 hours as necessary for pain. Plan to follow-up with Dr. Gustafson in the wound care clinic within the next week for examination of your venous stasis ulcer. Return to the ER in 10 days to have the sutures removed. All discharge instructions reviewed with patient and/or family. Voiced understanding. Scripts Hydrocodone/Acetaminophen (Hydrocodone-Acetamin 5-325 mg) 1 Each Tablet 0.5-1 TAB PO Q4H PRN for PAIN-MODERATE (5-7), #10 TAB 0 Refills Prov: JOHNNIE GALICIA 11/04/20 Cephalexin (Cephalexin) 500 Mg Tablet 500 MG PO QID for 7 Days, #28 TAB 0 Refills Prov: JOHNNIE GALICIA 11/04/20 Work/School Note: Work Release Form Date Seen in the Emergency Department: Nov 04, 2020 Return to Work: Nov 07, 2020 Restrictions: No Restrictions Copy Copies To 1: VIJAY GUSTAFSON MD, TITUS J Nov 04, 2020 11:14
[2020-11-04 11:35] LABS: BASOPHILS # (AUTO) 0.1 10^3/uL (0.0-0.1); BASOPHILS % (AUTO) 1 % (0-10); EOSINOPHILS # (AUTO) 0.3 10^3/uL (0.0-0.3); EOSINOPHILS % (AUTO) 3 % (0-10); HEMATOCRIT 39 % (35-52); HEMOGLOBIN 12.2 g/dL (11.5-16.0); LYMPHOCYTES # (AUTO) 1.8 10^3/uL (1.0-4.0); LYMPHOCYTES % (AUTO) 20 % (12-44); MEAN CORPUSCULAR HEMOGLOBIN 28 pg (25-34); MEAN CORPUSCULAR HGB CONC 31 g/dL (32-36); MEAN CORPUSCULAR VOLUME 92 fL (80-99); MEAN PLATELET VOLUME 11.2 fL (9.0-12.2); MONOCYTES # (AUTO) 0.7 10^3/uL (0.0-1.0); MONOCYTES % (AUTO) 7 % (0-12); NEUTROPHILS # (AUTO) 6.1 10^3/uL (1.8-7.8); NEUTROPHILS % (AUTO) 68 % (42-75); PLATELET COUNT 268 10^3/uL (130-400)
[2020-11-04] MEDS ORDERED: CEPH500T PO (11:35)
[2020-11-04] MEDS ORDERED: ACHD5005 PO (11:35)
[2020-11-04 11:42] VITALS: BP 139/54
== END 2020-11-04 11:42 | disposition home or self-care (01) ==
LOC: EDUNIT# 10:12 → ER 10:14
DX: I83.892 Varicose veins of left lower extremity with other complications (principal); I83.022 Varicose veins of left lower extremity with ulcer of calf; I87.8 Other specified disorders of veins; L97.221 Non-pressure chronic ulcer of left calf limited to breakdown of skin; I10 Essential (primary) hypertension; D64.9 Anemia, unspecified; Z85.42 Personal history of malignant neoplasm of other parts of uterus
CPT/HCPCS: 12001; 36415; 85025

== ENCOUNTER 2020-11-15 07:48 | Emergency (ER) | payer OTHER ==
[~2020-11-15] VITALS: Ht 157.4 cm; Wt 90.9 kg
[~2020-11-15 07:48] MED LIST changes: +ACHD5005 PO; +CEPH500T PO
== END 2020-11-15 08:00 | disposition home or self-care (01) ==
LOC: EDUNIT# 07:48 → ER 07:50
DX: Z48.02 Encounter for removal of sutures (principal)

== ENCOUNTER → 2020-11-16 | Outpatient (CLI) | payer OTHER | LOC: WOUNDCARE 09:13 | PROVIDERS: ATTEND Orthopaedic Surgery Hand Surgery | DX: I96 Gangrene, not elsewhere classified (principal); I87.312 Chronic venous hypertension (idiopathic) with ulcer of left lower extremity; L97.222 Non-pressure chronic ulcer of left calf with fat layer exposed; I87.2 Venous insufficiency (chronic) (peripheral); L03.116 Cellulitis of left lower limb | CPT/HCPCS: 11042; G0463 ==

== ENCOUNTER → 2020-11-22 | Outpatient (CLI) | payer OTHER | LOC: WOUNDCARE 08:04 | PROVIDERS: ATTEND Surgery | DX: L97.222 Non-pressure chronic ulcer of left calf with fat layer exposed (principal); I87.332 Chronic venous hypertension (idiopathic) with ulcer and inflammation of left lower extremity; L03.116 Cellulitis of left lower limb; I96 Gangrene, not elsewhere classified | CPT/HCPCS: 11042; G0463 ==

== ENCOUNTER → 2020-11-23 | Outpatient (CLI) | payer OTHER | LOC: WOUNDCARE 09:51 | PROVIDERS: ATTEND Surgery | DX: I87.312 Chronic venous hypertension (idiopathic) with ulcer of left lower extremity (principal) | CPT/HCPCS: 29581; G0463 ==

== ENCOUNTER → 2020-11-29 | Outpatient (CLI) | payer OTHER | LOC: WOUNDCARE 07:57 | PROVIDERS: ATTEND Surgery | DX: I96 Gangrene, not elsewhere classified (principal); L97.222 Non-pressure chronic ulcer of left calf with fat layer exposed; I87.332 Chronic venous hypertension (idiopathic) with ulcer and inflammation of left lower extremity; L03.116 Cellulitis of left lower limb | CPT/HCPCS: 11042; G0463 ==

== ENCOUNTER → 2020-12-06 | Outpatient (CLI) | payer OTHER | LOC: WOUNDCARE 08:08 | PROVIDERS: ATTEND Surgery | DX: L97.222 Non-pressure chronic ulcer of left calf with fat layer exposed (principal); I87.332 Chronic venous hypertension (idiopathic) with ulcer and inflammation of left lower extremity; I96 Gangrene, not elsewhere classified | CPT/HCPCS: 11042; G0463 ==

== ENCOUNTER → 2020-12-13 | Outpatient (CLI) | payer OTHER | LOC: WOUNDCARE 08:01 | PROVIDERS: ATTEND Surgery | DX: I87.312 Chronic venous hypertension (idiopathic) with ulcer of left lower extremity (principal) | CPT/HCPCS: 29581; G0463 ==

== ENCOUNTER → 2020-12-20 | Outpatient (CLI) | payer OTHER | LOC: WOUNDCARE 08:07 | PROVIDERS: ATTEND Surgery | DX: I96 Gangrene, not elsewhere classified (principal); L97.222 Non-pressure chronic ulcer of left calf with fat layer exposed; I87.332 Chronic venous hypertension (idiopathic) with ulcer and inflammation of left lower extremity | CPT/HCPCS: 11042; G0463 ==

== ENCOUNTER → 2020-12-27 | Outpatient (CLI) | payer OTHER | LOC: WOUNDCARE 08:13 | PROVIDERS: ATTEND Surgery | DX: L97.222 Non-pressure chronic ulcer of left calf with fat layer exposed (principal); I87.332 Chronic venous hypertension (idiopathic) with ulcer and inflammation of left lower extremity; I96 Gangrene, not elsewhere classified | CPT/HCPCS: 99213 ==

== ENCOUNTER → 2021-01-04 | Outpatient (CLI) | payer OTHER | LOC: WOUNDCARE 08:07 | PROVIDERS: ATTEND Orthopaedic Surgery Hand Surgery | DX: L97.222 Non-pressure chronic ulcer of left calf with fat layer exposed (principal); I87.332 Chronic venous hypertension (idiopathic) with ulcer and inflammation of left lower extremity | CPT/HCPCS: 97597; G0463 ==

== ENCOUNTER → 2021-01-11 | Outpatient (CLI) | payer OTHER | LOC: WOUNDCARE 08:00 | PROVIDERS: ATTEND Orthopaedic Surgery Hand Surgery | DX: L97.221 Non-pressure chronic ulcer of left calf limited to breakdown of skin (principal); I87.332 Chronic venous hypertension (idiopathic) with ulcer and inflammation of left lower extremity | CPT/HCPCS: 99212 ==

== ENCOUNTER → 2021-01-24 | Outpatient (CLI) | payer OTHER | LOC: ONC 09:20 | PROVIDERS: ATTEND Internal Medicine Hematology & Oncology | DX: C54.1 Malignant neoplasm of endometrium (principal); D50.0 Iron deficiency anemia secondary to blood loss (chronic); I10 Essential (primary) hypertension; Z98.890 Other specified postprocedural states | CPT/HCPCS: 99213 ==

== ENCOUNTER → 2021-01-28 | Outpatient (CLI) | payer OTHER ==
--- NOTE | 2021-01-28 17:48 | Diagnostic Imaging Report ---
EXAMINATION: Left wrist 3 or more views. HISTORY: Left wrist pain. COMPARISON: None available. FINDINGS: There are nonspecific calcifications in the soft tissues adjacent to the first carpometacarpal joint. There is mild first carpometacarpal joint osteoarthritis. Wrist alignment is normal. No acute fracture is seen. IMPRESSION: 1. No acute fracture. Dictated by: Dictated on workstation # [id number]
== END ==
LOC: RAD 16:01
PROVIDERS: ATTEND Family Medicine
DX: M25.532 Pain in left wrist (principal)
CPT/HCPCS: 73110